=== PATIENT | female | born 1980 | race Two or more races ===

== ENCOUNTER 2018-09-11 18:53 | Emergency (ER) | payer SELFPAY ==
[~2018-09-11] VITALS: Ht 154.9 cm; Wt 83.5 kg
[2018-09-11 21:18] LABS: BILIRUBIN,URINE NEGATIVE (NEG); CLARITY,URINE CLOUDY; COLOR,URINE YELLOW; NITRITE,URINE NEGATIVE (NEG); PH,URINE 5.5; PROTEIN,URINE 30 mg/dL (NEG-TRACE); UROBILINOGEN,URINE 0.2 mg/dL (0.2 mg/dL)
[2018-09-11 21:31] LABS: BACTERIA,URINE MANY /HPF (0-FEW); RBC,URINE TNTC /HPF (0-2); WBC,URINE TNTC /HPF (0-4)
[2018-09-11 21:32] LABS: SQUAMOUS EPITHELIAL CELL,UR FEW /LPF
--- NOTE | 2018-09-11 21:40 | PHYS DOC ---
Past Medical History Past Medical History: Asthma (FRANSISCA MISHRA APRN) Past Surgical History: Additional Past Surgical Histo: X 3 (FRANSISCA MISHRA APRN) Alcohol Use: None Drug Use: None (FRANSISCA MISHRA APRN) Adult General Chief Complaint Chief Complaint: VAGINAL BLEEDING HPI HPI Patient is a 37 year old female who presents to the ER with complaints of dysuria, suprapubic pain, and increased urine frequency today. Pt reports pressure in her suprapubic area increases after urinating. Pt denies any nausea , vomiting, diarrhea, fever, hematuria, back pain, cough, shortness of breath, irregular vaginal discharge, or incontinence. Pt denies any concerns of reports history of salpingectomy. She rates her pain a 9/10 on the pain scale, there are no alleviating factors, urination increases her pain. Pt states her last BM was today. (FRANSISCA MISHRA APRN) Review of Systems Review of Systems Constitutional: Denies fever or chills [] HENT: Denies nasal congestion or sore throat [] Respiratory: Denies cough or shortness of breath [] Cardiovascular: No additional information not addressed in HPI [] GI: Denies abdominal pain, nausea, vomiting, or diarrhea [] : Denies incontinence or hematuria, denies irregular vaginal discharge or STI concerns, see HPI Musculoskeletal: Denies back pain Integument: Denies rash or skin lesions [] Neurologic: Denies headache, (FRANSISCA MISHRA APRN) Current Medications Current Medications Current Medications Medications (Trade) Dose Ordered Sig/Daniel Start Time Stop Time Status Last Admin Dose Admin Cephalexin HCl (Keflex) 500 mg 1X ONCE 09/11/18 22:30 09/11/18 22:31 DC 09/11/18 22:39 500 MG Phenazopyridine HCl (Pyridium) 200 mg 1X ONCE 09/11/18 22:30 09/11/18 22:31 DC 09/11/18 22:39 200 MG (JAYSON ALBA MD) Allergies Allergies Allergies Coded Allergies Type Severity Reaction Last Updated Verified No Known Drug Allergies 09/11/18 No (JAYSON ALBA MD) Physical Exam Physical Exam Constitutional: Well developed, well nourished, no acute distress, non-toxic appearance. [] HENT: Normocephalic, atraumatic, bilateral external ears normal, nose normal. [ ] Eyes: PERRLA, conjunctiva normal, no discharge. [] Neck: Normal range of motion, no stridor. 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 [] Back: no CVA tenderness. [] Extremities: No cyanosis, ROM intact, no edema. [] Neurologic: Alert and oriented X 3, normal motor function, normal sensory function, no focal deficits noted. [] Psychologic: Affect normal, judgement normal, mood normal. [] (FRANSISCA MISHRA APRN) Current Patient Data Vital Signs Vital Signs Date Time Temp Pulse Resp B/P (MAP) Pulse Ox O2 Delivery O2 Flow Rate FiO2 09/11/18 22:36 85 16 118/64 (82) 100 Room Air 09/11/18 20:30 98.5 98.5 (JAYSON ALBA MD) Lab Values Laboratory Tests Test 09/11/18 20:00 09/11/18 20:45 POC Urine HCG, Qualitative Hcg negative (Negative) Urine Collection Type Void Urine Color Yellow Urine Clarity Cloudy Urine pH 5.5 Urine Specific [place] >=1.030 Urine Protein 30 mg/dL (NEG-TRACE) Urine Glucose (UA) 100 mg/dL (NEG) Urine Ketones (Stick) Trace mg/dL (NEG) Urine Blood Large (NEG) Urine Nitrite Negative (NEG) Urine Bilirubin Negative (NEG) Urine Urobilinogen Dipstick 0.2 mg/dL (0.2 mg/dL) Urine Leukocyte Esterase Large (NEG) Urine RBC Tntc /HPF (0-2) Urine WBC Tntc /HPF (0-4) Urine Squamous Epithelial Cells Few /LPF Urine Bacteria Many /HPF (0-FEW) Microbiology 09/11/18 Urine Culture - Final, Complete 09/11/18 Urine Culture Result 1 (KULWANT) - Final, Complete 09/11/18 Antimicrobic Susceptibility - Final, Complete (JAYSON ALBA MD) EKG EKG [] (FRANSISCA MISHRA APRN) Radiology/Procedures Radiology/Procedures [] (FRANSISCA MISHRA APRN) Course & Med Decision Making Course & Med Decision Making Pertinent Labs and Imaging studies reviewed. (See chart for details) Dx: UTI with hematuria, dysuria DDX: cystocele, pyelonephritis, STI No CVA tenderness. UA concerning for UTI. Pt given 500 mg tab of keflex in the ER, and 200 mg of pyridium. Prescriptions written for pyridium and keflex, increase clear fluids, avoid bladder irritants. Follow up with pcp if sx persist , return to ER if sx worsen. Patient verbalized an understanding of home care, medications, follow-up, and return to ED instructions and was in agreement with the plan of care. (FRANSISCA MISHRA APRN) Course & Med Decision Making Staff Physician Addendum: I was working in the ER during the course of this patient's visit. I was available for consultation as needed, but I was not directly involved in the care of this patient. (JAYSON ALBA MD) Dragon Disclaimer Dragon Disclaimer This electronic medical record was generated, in whole or in part, using a voice recognition dictation system. (FRANSISCA MISHRA APRN) Departure Departure Impression: Primary Impression: Urinary tract infection Disposition: HOME, SELF-CARE Condition: STABLE Referrals: NO PCP (PCP) Patient Instructions: Urinary Tract Infection, [id number] Additional Instructions: Fill prescription(s) and use as directed. Avoid bladder irritants such as caffeine, carbonation, and spicy foods. Increase clear fluids. Follow up with your primary care doctor if symptoms persist, return to the ER if symptoms worsen. Scripts Phenazopyridine Hcl (PYRIDIUM) 100 Mg Tablet 100 MG PO TID PRN for PAIN for 5 Days, #15 TAB 0 Refills Prov: FRANSISCA MISHRA APRN 09/11/18 Cephalexin (KEFLEX) 500 Mg Capsule 1 CAP PO BID, #14 CAP 0 Refills Prov: FRANSISCA MISHRA APRN 09/11/18 Problem Qualifiers Primary Impression: Urinary tract infection Urinary tract infection type: site unspecified Hematuria presence: with hematuria Qualified Codes: N39.0 - Urinary tract infection, site not specified ; R31.9 - Hematuria, unspecified FRANSISCA MISHRA APRN Sep 11, 2018 21:40 JAYSON ALBA MD Sep 16, 2018 07:51
[2018-09-11] MEDS ORDERED: CEPH-264 PO (22:24)
[2018-09-11] MEDS ORDERED: PHEN100T82 PO (22:24)
[2018-09-11] MEDS ORDERED: PHENAZOPYRIDINE 200 MG TABLET. PO ONE (22:30)
[2018-09-11] MEDS ORDERED: CEPHALEXIN 250 MG CAPSULE. PO ONE (22:30)
[2018-09-11 22:36] VITALS: BP 118/64
== END 2018-09-11 22:39 | disposition home or self-care (01) ==
LOC: ER 18:53
DX: N39.0 Urinary tract infection, site not specified (principal); J45.909 Unspecified asthma, uncomplicated; Z98.890 Other specified postprocedural states
CPT/HCPCS: 81001; 81025; 87086; 87186; 99283

== ENCOUNTER 2020-11-13 15:00 | Emergency (ER) | payer SELFPAY ==
[~2020-11-13] VITALS: Ht 152.4 cm; Wt 79.0 kg
[~2020-11-13 15:00] MED LIST: CEPH-264 PO; PHEN100T82 PO
[2020-11-13] MEDS ORDERED: IV NORMAL SALINE 1000ML BAG 1,000 ML IV SCH (17:00)
--- NOTE | 2020-11-13 17:01 | PHYS DOC ---
Past Medical History Past Medical History: Asthma Past Surgical History: Additional Past Surgical Histo: X 3 Smoking Status: Never Smoker Alcohol Use: None Drug Use: None General Adult EDM: Chief Complaint: VAGINAL BLEEDING HPI: HPI: Patient is a 40 year old female who presents with states she began having vaginal bleeding that started on October 17 and then stopped and then she started again on October 26 and has been having vaginal bleeding ever since. She denies any clots and states that she has been going through 2 pads a day. She denies any pain. She has had both of her Covid shots. She states today she began getting slightly dizzy at work but does not feel dizzy right now. She has a history of . Patient states she does not have a negative developer. patient denies headache, syncope, abdominal pain, nausea, vomiting, diarrhea, constipation, chest pain, shortness of breath, fever, urinary symptoms, back pain. Review of Systems: Review of Systems: Constitutional: Denies fever or chills. [] Eyes: Denies change in visual acuity. [] HENT: Denies nasal congestion or sore throat. [] Respiratory: Denies cough or shortness of breath. [] Cardiovascular: Denies chest pain or edema. [] GI: Denies abdominal pain, nausea, vomiting, bloody stools or diarrhea. [] : Denies dysuria. + Vaginal bleeding [] Musculoskeletal: Denies back pain or joint pain. [] Integument: Denies rash. [] Neurologic: Denies headache, focal weakness or sensory changes. + Dizziness [] Endocrine: Denies polyuria or polydipsia. [] Lymphatic: Denies swollen glands. [] Psychiatric: Denies depression or anxiety. [] Heart Score: C/O Chest Pain: No Risk Factors: Risk Factors: DM, Current or recent (<one month) smoker, HTN, HLP, family history of CAD, obesity. Risk Scores: Score 0 - 3: 2.5% MACE over next 6 weeks - Discharge Home Score 4 - 6: 20.3% MACE over next 6 weeks - Admit for Clinical Observation Score 7 - 10: 72.7% MACE over next 6 weeks - Early Invasive Strategies Allergies: Allergies: Allergies Coded Allergies Type Severity Reaction Last Updated Verified No Known Drug Allergies 09/11/18 No Physical Exam: PE: Constitutional: Well developed, well nourished, no acute distress, non-toxic appearance. [] HENT: Normocephalic, atraumatic, bilateral external ears normal, oropharynx moist, no oral exudates, nose normal. [] Eyes: PERRLA, EOMI, conjunctiva normal, no discharge. [] Neck: Normal range of motion, no tenderness, supple, no stridor. [] Cardiovascular:Heart rate regular rhythm, no murmur [] Lungs & Thorax: Bilateral breath sounds clear to auscultation [] Abdomen: Bowel sounds normal, soft, no tenderness, no masses, no pulsatile masses. [] Skin: Warm, dry, no erythema, no rash. [] Back: No tenderness, no CVA tenderness. [] Extremities: No tenderness, no cyanosis, no clubbing, ROM intact, no edema. [] Neurologic: Alert and oriented X 3, normal motor function, normal sensory function, no focal deficits noted. [] Psychologic: Affect normal, judgement normal, mood normal. Normal physical exam [] Current Patient Data: Vital Signs: Vital Signs Date Time Temp Pulse Resp B/P (MAP) Pulse Ox O2 Delivery O2 Flow Rate FiO2 11/13/20 16:30 98.8 95 16 138/65 (89) 97 Room Air 98.8 EKG: EK and read by Dr. Juarez is sinus rhythm and no STEMI Radiology/Procedures: Radiology/Procedures: [] Impression: [facility] [address] [place] [address] IMAGING REPORT Signed PATIENT: GINGER JACKSONACCOUNT: [id number] : 1980 LOCATION: ER AGE: 40 SEX: F EXAM STATUS: REG ER ORD. PHYSICIAN: LAI ROLLE APRN REASON: VAGINAL BLEEDING PROCEDURE: PELVIS COMPLETE EXAM: Pelvic sonogram. HISTORY: Vaginal bleeding. TECHNIQUE: Sonographic imaging of the pelvis was performed. COMPARISON: None. FINDINGS: The uterus measures 14.8 x 6.0 x 4.7 cm. The endometrial stripe measures 5.9 mm thickness. The ovaries are normal in size and demonstrate normal blood flow. There is no adnexal mass or cyst. There is no pelvic free fluid. The bladder is unremarkable. IMPRESSION: Unremarkable pelvic sonogram. Electronically signed by: Maria Ines Aguero MD (11/13/2020 5:32 PM) [facility] DICTATED and SIGNED BY: MARIA INES AGUERO MD DATE: 11/13/20 [id number] 0 Course & Med Decision Making: Course & Med Decision Making Pertinent Labs and Imaging studies reviewed. (See chart for details) See HPI. Alert and oriented x4. Ambulatory with a steady gait. Speaks in full clear sentences. Abdomen is soft and nontender. PERRLA. No nystagmus. Blood work shows no acute findings. Urinalysis does not show infection. She received a liter of normal saline. Ultrasound showed no acute findings. Patient will be referred to a negative developer. [] Dragon Disclaimer: Dragon Disclaimer: This electronic medical record was generated, in whole or in part, using a voice recognition dictation system. Departure Departure Impression: Primary Impression: Vaginal bleeding Disposition: 01 HOME / SELF CARE / HOMELESS Condition: STABLE Referrals: NO PCP (PCP) DIXON LAIRD Jr, MD Patient Instructions: Dysmenorrhea Additional Instructions: Follow-up with negative developer as soon as possible. If you start going through more than 1 pad an hour or become short of breath or lose consciousness you need to return to the emergency room. Drink plenty of fluids to stay hydrated. LAI ROLLE APRN November 13, 2020 17:00
[2020-11-13 17:32] LABS: BILIRUBIN,URINE NEGATIVE (NEG); CLARITY,URINE CLEAR; COLOR,URINE YELLOW; NITRITE,URINE NEGATIVE (NEG); PH,URINE 5.5 (<5.0-8.0); PROTEIN,URINE NEGATIVE (NEG-TRACE); UROBILINOGEN,URINE 0.2 mg/dL (0.2 mg/dL)
--- NOTE | 2020-11-13 17:34 | RAD ---
EXAM: Pelvic sonogram. HISTORY: Vaginal bleeding. TECHNIQUE: Sonographic imaging of the pelvis was performed. COMPARISON: None. FINDINGS: The uterus measures 14.8 x 6.0 x 4.7 cm. The endometrial stripe measures 5.9 mm thickness. The ovaries are normal in size and demonstrate normal blood flow. There is no adnexal mass or cyst. T here is no pelvic free fluid. The bladder is unremarkable. IMPRESSION: Unremarkable pelvic sonogram. Electronically signed by: Maria Ines Oreilly MD (11/13/2020 5:32 PM) [facility]
[2020-11-13 17:37] LABS: BASO # 0.1 x10^3/uL (0.0-0.2); BASO % 1 % (0-3); EOS # 0.3 x10^3/uL (0.0-0.7); EOS % 3 % (0-3); HEMATOCRIT 32.5 % (36.0-47.0); LYMPH # 2.5 x10^3/uL (1.0-4.8); LYMPH % 28 % (24-48); MEAN CORPUSCULAR HEMOGLOBIN 29 pg (25-35); MEAN CORPUSCULAR HGB CONC 34 g/dL (31-37); MEAN CORPUSCULAR VOLUME 86 fL (79-100); MONO # 0.7 x10^3/uL (0.0-1.1); MONO % 8 % (0-9); NEUT # 5.2 x10^3/uL (1.8-7.7); NEUT % 60 % (31-73); PLATELET COUNT 318 x10^3/uL (140-400); RED BLOOD COUNT 3.79 x10^6/uL (3.50-5.40); RED CELL DISTRIBUTION WIDTH 13.2 % (11.5-14.5); WHITE BLOOD COUNT 8.7 x10^3/uL (4.0-11.0)
[2020-11-13 17:50] LABS: PROTHROMBIN TIME PATIENT 12.3 SEC (11.7-14.0)
[2020-11-13 17:53] LABS: RBC,URINE TNTC /HPF (0-2)
[2020-11-13 17:54] LABS: WBC,URINE RARE /HPF (0-4)
[2020-11-13 17:55] LABS: BACTERIA,URINE 0 /HPF (0-FEW)
[2020-11-13 17:55] LABS: CALCIUM 8.6 mg/dL (8.5-10.1); CREATININE 0.7 mg/dL (0.6-1.0); GFR 91.8; POTASSIUM 3.6 mmol/L (3.5-5.1)
[2020-11-13 18:01] LABS: ALBUMIN 3.6 g/dL (3.4-5.0); ALBUMIN/GLOBULIN RATIO 1.1 (1.0-1.7); TOTAL BILIRUBIN 0.1 mg/dL (0.2-1.0); TOTAL PROTEIN 6.8 g/dL (6.4-8.2)
--- NOTE | 2020-11-13 18:09 | EKG ---
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
[2020-11-13 18:50] VITALS: BP 143/81
== END 2020-11-13 19:00 | disposition home or self-care (01) ==
LOC: ER 15:00
DX: R42 Dizziness and giddiness (principal); N93.9 Abnormal uterine and vaginal bleeding, unspecified; J45.909 Unspecified asthma, uncomplicated; Z98.890 Other specified postprocedural states
CPT/HCPCS: 36415; 76856; 80053; 81001; 81025; 85025; 85610; 87086; 93005; 96360; 99285; J7030